=== PATIENT | male | born 1955 | race Caucasian/White ===

== ENCOUNTER → 2023-11-28 09:17 | Outpatient (REF) | payer MEDICARE, BC, SELFPAY | LOC: PAVMRI 09:17 | PROVIDERS: ATTENDING PHYSICIAN Orthopaedic Surgery; FAMILY PHYSICIAN Family Medicine; REFERRING PHYSICIAN Internal Medicine Rheumatology | DX: M47.22 Other spondylosis with radiculopathy, cervical region (principal); M25.549 Pain in joints of unspecified hand | CPT/HCPCS: 72125; 72141; 73120 ==

== ENCOUNTER → 2024-01-18 18:46 | Outpatient (REF) | payer MEDICARE, BC, SELFPAY | LOC: PAVMRI 18:46 | PROVIDERS: ATTENDING PHYSICIAN Physician Assistant Medical; FAMILY PHYSICIAN Family Medicine | DX: M54.16 Radiculopathy, lumbar region (principal) | CPT/HCPCS: 72148 ==

== ENCOUNTER → 2025-06-06 15:07 | Outpatient (REF) | payer MEDICARE, BC, SELFPAY | LOC: PAVMRI 15:07 | PROVIDERS: ATTENDING PHYSICIAN Family Medicine | DX: M50.10 Cervical disc disorder with radiculopathy, unspecified cervical region (principal) | CPT/HCPCS: 72141 ==